=== PATIENT | male | born 1970 | race Caucasian/White ===

== ENCOUNTER 2024-06-29 08:43 | Emergency (ER) | payer BC, SELFPAY ==
[2024-06-29 09:15] VITALS: BP 129/76; PULSE 80; RESP 18; TEMP 36; O2SAT 97
--- NOTE | 2024-06-29 09:53 | ED_ITS ---
HPI - General Adult General Chief complaint: Unspecified Stated complaint: Ractal Problem Time Seen by Provider: 06/29/24 09:50 Source: patient, RN notes reviewed and old records reviewed Mode of arrival: ambulatory Limitations: no limitations History of Present Illness HPI narrative: 53 year old male presents to [facility] care with complaints of discomfort with bowel movement with some blood noted on tissue when wiping increased in the past 2 weeks but has been intermittently for some time. Patient reports that he does not have PCP and has never had colonoscopy done. Patient denies noting any blood in the stool, no black stools or any foul odor of stool or episodes of diarrhea. Patient denies any difficulty with urination or any testicle pain. Patient reports that he has used some witch adilene to rectal area. MD complaint: discomfort with bowel movement, blood noted on tissue Onset (ago): week(s) (increased symptoms for 2 weeks but has been intermittently for some time) Location: buttocks (rectum) Severity scale (1-10): 3 Treatments prior to arrival: other (witch adilene) Related Data Allergies Allergy/AdvReac Type Severity Reaction Status Date / Time No Known Allergies Allergy Verified 06/29/24 09:28 Review of Systems Review of Systems: CONSTITUTIONAL: Denies fever, chills, or sweats. EYES: Denies visual changes, redness, or discharge. ENT: Denies rhinorrhea, congestion, sore throat, or otalgia. CARDIOVASCULAR: Denies chest pain, palpitations, or edema. RESPIRATORY: Denies cough or dyspnea. GASTROINTESTINAL: Denies abdominal pain, nausea, vomiting, or diarrhea.reports rectal discomfort GENITOURINARY: Denies dysuria or hematuria. SKIN: Denies rash or itching. MUSCULOSKELETAL: Denies back pain, joint pain, or myalgia. NEUROLOGIC: Denies headache, numbness, or weakness. PSYCHIATRIC: Denies anxiety or depression. 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 There is no relevant family history pertinent to the presenting complaint Exam Narrative: GENERAL: Well-appearing, well-nourished, and in no acute distress. HEAD: Normocephalic, atraumatic. EYES: PERRLA and EOMI. ENT: Nares clear, no rhinorrhea or epistaxis. Mucous membranes moist.TM's normal throat pnk with no exudates or swelling NECK: Supple. no lymphadenopathy CHEST: Clear to auscultation. No respiratory distress.SAO2 97% on room air HEART: Regular rate and rhythm. No murmur heard. Normal peripheral pulses. ABDOMEN: Soft, nontender, nondistended, normal active bowel sounds.Rectal exam with no external hemorrhoids noted, area of irritation in perineal area with no bleeding noted. no blood noted on glove on exam no internal hemorrhoids palpated EXTREMITIES: Normal range of motion. No edema. SKIN: Warm, dry, no rash. NEURO: No focal deficits. Alert and oriented x3. Course Course Emergency Course: Patient is aware of diagnosis, understands and agrees to treatment plan.? Anticipatory guidance given.? Patient agrees to follow-up as directed and is aware of reasons to seek care at the emergency department. Portions of this record may have been created with voice recognition software Level of Care: Express Care Visit Vital Signs Vital signs: Vital Signs Temperature 36.0 C L 06/29/24 09:15 Pulse Rate 80 06/29/24 09:15 Respiratory Rate 18 06/29/24 09:15 Blood Pressure 129/76 06/29/24 09:15 Pulse Oximetry 97 06/29/24 09:15 Oxygen Delivery Room Air 06/29/24 09:15 Temperature 36.0 C L 06/29/24 09:15 Pulse Rate 80 06/29/24 09:15 Respiratory Rate 18 06/29/24 09:15 Blood Pressure 129/76 06/29/24 09:15 Pulse Oximetry 97 06/29/24 09:15 Oxygen Delivery Room Air 06/29/24 09:15 Reviewed Medical Decision Making MDM Narrative Medical decision making narrative: Exam findings and imaging show no acute concerns or changes; patient is non- toxic appearing and is in no distress.? Patient is appropriate for outpatient treatment and follow-up Differential Diagnosis Differential Diagnosis: perineal discomfort with irritated skin, discomfort with bowel movements, blood noted on tissue when wiping but none in stool observed, internal hemorrhoids Medical Records Medical records reviewed: Yes I reviewed the external patient's medical records. Vital Signs Vital Signs: Vital Signs Temperature 36.0 C L 06/29/24 09:15 Pulse Rate 80 06/29/24 09:15 Respiratory Rate 18 06/29/24 09:15 Blood Pressure 129/76 06/29/24 09:15 Pulse Oximetry 97 06/29/24 09:15 Oxygen Delivery Room Air 06/29/24 09:15 Temperature 36.0 C L 06/29/24 09:15 Pulse Rate 80 06/29/24 09:15 Respiratory Rate 18 06/29/24 09:15 Blood Pressure 129/76 06/29/24 09:15 Pulse Oximetry 97 06/29/24 09:15 Oxygen Delivery Room Air 06/29/24 09:15 reviewed Critical Care Time Critical Care Time Critical Care Time: No Discharge Plan Discharge Clinical Impression: Rectal discomfort Patient Disposition: Home, Self-Care Condition: Stable Instructions: Rectal Pain (ED) Additional Instructions: Daily stool softeners Bacitracin ointment to rectal tissue above Anus twice daily Rectal suppositories daily as ordered Monitor for any fevers Note if any blood in stools or have any blood on tissue when wiping Establish with a primary care provider Needs screening colonoscopy If your symptoms persist, change or worsen significantly before you can contact your personal physician then please, without delay, go to the emergency department for further evaluation. Follow-up with PCP in 7-10 days or sooner if needed Follow up with PCP soon in regards to your blood pressure which is elevated above threshold for referral. Blood pressure above 120/80 may indicate pre- hypertension. 129/76 minimal elevation Prescriptions: New hydrocortisone acetate 25 mg suppository 25 mg RECTAL DAILY Qty: 12 0RF Follow-up/Referrals: PHYSICIAN,VENUE ATTENDANT [Primary Care Provider] - Time of Disposition: 10:22 Quality [place] Coma Scale Eyes: Open Verbal: Oriented and Alert Motor: Follows Commands [place] Coma Total Score: 15
== END 2024-06-29 10:26 | disposition home or self-care (01) ==
PROVIDERS: Emergency Provider Registered Nurse
DX: K62.89 Other specified diseases of anus and rectum (principal)
CPT/HCPCS: 99213; G0463

== ENCOUNTER 2024-10-13 08:41 | Emergency (ER) | payer BC, SELFPAY ==
--- NOTE | 2024-10-13 08:47 | ED.URI ---
HPI - URI/Sore Throat General Chief Complaint: Upper Respiratory Infection Stated Complaint: congestion/fever/aches Source: patient and RN notes reviewed Mode of arrival: ambulatory Limitations: no limitations History of Present Illness HPI Narrative: 54-year-old male presented for complaint of headache, body aches, sinus pressure/congestion, cough, fever/chills. onset 2-3 days. Temp up to 100.5. Taking ibuprofen. Denies sob, wheezing, n/v/d. MD elicited complaint: cough Related Data Home Medications ?Medication ?Instructions ?Recorded ?Confirmed ?Last Taken ?Type No Home Medications 10/13/24 10/13/24 Unknown History Allergies Allergy/AdvReac Type Severity Reaction Status Date / Time No Known Allergies Allergy Verified 10/13/24 08:50 Review of Systems Review of Systems: CONSTITUTIONAL: Endorses malaise, chills, sweats, fever EYES: Denies visual changes, redness, or discharge ENT: Reports rhinorrhea, congestion, sore throat CARDIOVASCULAR: Denies chest pain, palpitations, edema RESPIRATORY: Reports cough, post nasal drainage. 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 EYES: PERRLA, conjunctivae clear ENT: Mucous membranes moist. TM pearly hicks with dull light reflex bilaterally; no tragal tenderness. no drooling, no hoarseness, no trismus, uvula midline. No tripod positioning, muffled voice, soft palate or pharyngeal wall bulging NECK: Supple. No lymphadenopathy CHEST: Clear to auscultation, breath sounds equal. No wheezing, rhonchi, rales, or stridor. No respiratory distress, speaks in full sentences. HEART: Regular rate and rhythm. SKIN: Warm, dry, no rash. NEURO: Alert and oriented x3. PSYCH: Normal mood and affect Course Course Emergency Course: Patient is aware of diagnosis, understands and agrees to treatment plan. Anticipatory guidance given. Patient agrees to follow-up as directed and is aware of reasons to seek care at the emergency department. Portions of this record may have been created with voice recognition software Level of Care: Express Care Visit Vital Signs Vital signs: Vital Signs Pulse Rate 103 H 10/13/24 08:48 Respiratory Rate 20 10/13/24 08:48 Blood Pressure 125/81 10/13/24 08:48 Pulse Oximetry 95 10/13/24 08:48 Oxygen Delivery Room Air 10/13/24 08:48 Pulse Rate 103 H 10/13/24 08:48 Respiratory Rate 20 10/13/24 08:48 Blood Pressure 125/81 10/13/24 08:48 Pulse Oximetry 95 10/13/24 08:48 Oxygen Delivery Room Air 10/13/24 08:48 reviewed MDM - URI/Sore Throat MDM Narrative Medical decision making narrative: POS flu. Discussed physical exam findings. Advised supportive measures and signs/symptoms to go to the ER. Pt is appropriate for outpt treatment and f/u. Differential Diagnosis Differential diagnosis: Likely upper respiratory infection, sinusitis and viral infection Lab Data Labs: Lab Results 10/13/24 Range/Units 08:57 POC Influenza A Ag Positive (Negative) POC Influenza B Ag Negative (Negative) POC SARS CoV-2 Ag Negative (Negative) Discharge Plan Discharge Clinical Impression: Influenza Patient Disposition: Home, Self-Care Condition: Stable Instructions: Antibiotic Form, Influenza (ED) Additional Instructions: Influenza positive You should avoid crowds until you are fever free for 24 hours without the use of fever reducing medications, or the symptoms are improved Rest. Drink plenty of fluids. Tylenol 1000mg every 8 hours as needed for pain/fever Recommend Flonase spray and Zyrtec (or Claritin/Jaci) for sinus pressure/congestion over the counter Cough syrup may cause drowsiness; avoid driving or take it at night time. Follow up with your primary care provider as needed Go to the ER for worsening symptoms or concerns Patient Language: Armenian Prescriptions: No Action No Home Medications Follow-up/Referrals: PHYSICIAN,OCCUPATIONAL MEDICINE PHYSICIAN [Primary Care Provider] - Time of Disposition: 09:12
[2024-10-13 08:48] VITALS: BP 125/81; PULSE 103; RESP 20; O2SAT 95
[2024-10-13 08:59] LABS: EDCOVIDSCREEN Negative (Negative); EDINFLUASCREEN Positive (Negative); EDINFLUBSCREEN Negative (Negative)
== END 2024-10-13 09:20 | disposition home or self-care (01) ==
PROVIDERS: Emergency Provider Nurse Practitioner Family
DX: J11.1 Influenza due to unidentified influenza virus with other respiratory manifestations (principal); Z20.822 Contact with and (suspected) exposure to COVID-19
CPT/HCPCS: 87426; 87804; 99212; G0463